=== PATIENT | female | born 1990 | race Two or more races ===

== ENCOUNTER 2024-03-13 12:18 | Emergency (ER) | payer BC, OTHER ==
[~2024-03-13] VITALS: Ht 165.1 cm; Wt 131.5 kg
[2024-03-13 13:19] VITALS: BP 134/98; TEMP 98.4; O2SAT 98
== END 2024-03-13 13:19 | disposition home or self-care (01) ==
LOC: ER 12:31
DX: J18.9 Pneumonia, unspecified organism (principal); J45.909 Unspecified asthma, uncomplicated; Z60.2 Problems related to living alone